=== PATIENT | male | born 1960 | race Caucasian/White ===

== ENCOUNTER 2024-03-10 11:27 | Inpatient (IN) | payer MEDICARE, OTHER ==
[~2024-03-10] VITALS: Ht 172.7 cm; Wt 74.7 kg
[2024-03-10 13:16] LABS: Basophils # (auto) 0.1 10 ^3/uL (0-0.2); Basophils % (auto) 0.6 % (0.0-2.0); Eosinophils # (auto) 0 10 ^3/uL (0-0.8); Eosinophils % (auto) 0.3 % (0.0-7.0); Hematocrit 45.1 % (41.0-53.0); Hemoglobin 15.8 g/dL (13.5-17.5); Lymphocytes % (auto) 18.6 % (10.0-50.0); Mean Corpuscular Hemoglobin 33.9 pg (28.0-32.0); Mean Corpuscular Volume 96.9 fL (80.0-100.0); Monocytes # (auto) 0.7 10 ^3/uL (0-1.3); Monocytes % (auto) 6.3 % (0.0-12.0); Neutrophils # (auto) 8.1 10 ^3/uL (1.6-8.6); Neutrophils % (auto) 74.2 % (37.0-80.0); Nucleated Red Blood Cells % 0.1 %; Platelet Count (auto) 213 10^3/uL (140-450); Red Blood Cells 4.66 10^6/uL (4.5-5.90); Red Cell Distribution Width 12.8 % (11.8-14.3); White Blood Cell 10.9 10^3/uL (4.4-10.8)
[2024-03-10 13:29] LABS: Alanine Aminotransferase 23 U/L (7-40); Albumin 4.9 g/dL (3.2-4.8); Alkaline Phosphatase 90 U/L (46-116); Anion Gap 5 (5-15); Aspartate Aminotransferase 31 U/L (13-40); BUN/Creatinine Ratio 15.8 (10.0-20.0); Blood Alcohol < 3.0 mg/dL (<10); Blood Urea Nitrogen 16 mg/dL (9-23); Calcium 10.7 mg/dL (8.7-10.4); Carbon Dioxide 28 mmol/L (20-30); Chloride 104 mmol/L (98-107); Glucose 114 mg/dL (74-106); Potassium 3.8 mmol/L (3.5-5.1); Sodium 137 mmol/L (136-145)
[2024-03-10 13:30] LABS: Bilirubin, Total 1.6 mg/dL (0.2-1.0); Total Protein 7.1 g/dL (5.7-8.2)
[2024-03-10] MEDS ORDERED: NITROGLYCERIN 0.4 MG SL TAB SL PRN (17:00)
[2024-03-10] MEDS ORDERED: LORazepam 2MG/ML-1ML VIAL IV PRN ×3 (17:00→21:15)
[2024-03-10 18:18] LABS: Blood Alcohol < 3.0 mg/dL (<10)
[2024-03-10 18:19] LABS: Magnesium 2.2 mg/dL (1.6-2.6)
[2024-03-10 18:20] LABS: Phosphorus 3.5 mg/dL (2.4-5.1)
[2024-03-10] MEDS: SODIUM CHLORIDE 0.9% 1,000 ML IV SCH (19:09)
[2024-03-10] MEDS: chlordiazePOXIDE HCL 25 MG CAP PO SCH (19:12)
[2024-03-11] MEDS: ATORVASTATIN 20 MG TAB PO SCH (00:28)
[2024-03-11 06:29] LABS: Triglycerides 58 mg/dL (< 150)
[2024-03-11 06:30] LABS: LDL Cholesterol 58 mg/dL (< 100)
[2024-03-11 06:31] LABS: Cholesterol 138 mg/dL (< 200); HDL Cholesterol 63 mg/dL (40-59)
[2024-03-11 07:30] VITALS: PULSE 60; RESP 18; O2SAT 97
[2024-03-11 09:23] LABS: Urine Bacteria None Seen /hpf (None Seen)
[2024-03-11 09:29] LABS: Urine Blood Negative /uL (Negative); Urine Clarity Clear (Clear); Urine Color Light-Yellow (Yellow); Urine Protein, UAD Negative (Negative); Urine Specific Gravity 1.009 (1.001-1.035); Urine Urobilinogen Normal (Negative); Urine WBC <1 /hpf (0 - 3)
[2024-03-11 09:44] LABS: Amphetamine Screen, Urine Neg (NEGATIVE); Barbiturate Scree,Urine Neg (NEGATIVE); Benzodiazephine Screen, Urine Pos (NEGATIVE); Cannabinoid Screen, Urine Pos (NEGATIVE); Cocaine Screen, Urine Neg (NEGATIVE); Opiate Scree,Urine Neg (NEGATIVE); Phencyclidine Screen, Urine Neg (NEGATIVE)
[2024-03-11] MEDS: LOSARTAN POTASSIUM 25 MG TAB PO SCH (10:00)
[2024-03-11] MEDS: CYANOCOBALAMIN 500 MCG TAB PO SCH (10:08)
[2024-03-11] MEDS: THIAMINE 100mg/ml INJ (200mg/2ml VIAL) IV SCH (10:08)
[2024-03-11] MEDS: ASPirin 81 mg TAB PO SCH (10:08)
[2024-03-11] MEDS: FOLIC ACID 1 MG in D5W 5% 50 ML INJ SCH (12:24)
[2024-03-11 13:30] VITALS: BP 135/73; PULSE 65; RESP 16; TEMP 97.5; O2SAT 98
[2024-03-11 13:52] VITALS: BP 135/73; PULSE 65; RESP 16; TEMP 97.5; O2SAT 98
[2024-03-11 17:00] VITALS: BP 133/79; PULSE 58; RESP 17; TEMP 97.6; O2SAT 100
[2024-03-11 19:35] LABS: COVID19 ANTIGEN SOFIA FIA NEGATIVE (NEGATIVE)
[2024-03-11 20:00] VITALS: PULSE 67; RESP 20; O2SAT 97
[2024-03-11 21:00] VITALS: BP 117/68; PULSE 68; RESP 20; TEMP 97.9; O2SAT 100
[2024-03-11] MEDS: chlordiazePOXIDE HCL 25 MG CAP PO SCH (22:45)
[2024-03-12 01:00] VITALS: BP 105/65; PULSE 67; RESP 20; TEMP 98.2; O2SAT 97
[2024-03-12 05:00] VITALS: BP 124/66; PULSE 64; RESP 18; TEMP 98.5; O2SAT 92
[2024-03-12 09:00] VITALS: BP 113/63; PULSE 77; RESP 17; TEMP 97.6; O2SAT 97
[2024-03-12 17:00] VITALS: BP 117/61; PULSE 74; RESP 18; TEMP 97.7; O2SAT 97
[2024-03-12 20:00] VITALS: PULSE 73; RESP 20; O2SAT 98
[2024-03-12 21:00] VITALS: BP 117/70; PULSE 58; RESP 20; TEMP 98.4; O2SAT 98
[2024-03-12] MEDS: chlordiazePOXIDE HCL 25 MG CAP PO SCH (22:00)
[2024-03-13 01:00] VITALS: BP 117/77; PULSE 64; RESP 20; TEMP 98.2; O2SAT 97
[2024-03-13 05:00] VITALS: BP 127/70; PULSE 74; RESP 20; TEMP 98.3; O2SAT 97
[2024-03-13 08:25] VITALS: PULSE 68; RESP 16; O2SAT 97
[2024-03-13 08:37] VITALS: BP 134/74; PULSE 68; RESP 16; TEMP 98.1; O2SAT 97
[2024-03-13 13:00] VITALS: BP 134/81; PULSE 58; RESP 16; TEMP 97.9; O2SAT 97
[2024-03-13 14:42] VITALS: BP 134/81; PULSE 58; RESP 16; TEMP 97.9; O2SAT 97
[2024-03-14 05:07] LABS: RPR Non Reactive (Non Reactive)
[2024-03-14] MEDS ORDERED: chlordiazePOXIDE HCL 25 MG CAP PO SCH (07:00)
[2024-03-14] MEDS ORDERED: MULT-1018 PO (09:25)
[2024-03-14] MEDS ORDERED: FOLI-119 PO (09:25)
[2024-03-14] MEDS ORDERED: THIA100T13 PO (09:25)
== END 2024-03-13 16:07 | disposition home or self-care (01) | DRG 74 ==
LOC: ER 11:27 → OVERFLOW 17:22 → WEST WING 03-11 13:32
PROVIDERS: ADMIT Nurse Practitioner Family; ATTEND Family Medicine
DX: G90.9 Disorder of the autonomic nervous system, unspecified (principal); F10.239 Alcohol dependence with withdrawal, unspecified; G40.209 Localization-related (focal) (partial) symptomatic epilepsy and epileptic syndromes with complex partial seizures, not intractable, without status epilepticus; D72.829 Elevated white blood cell count, unspecified; G89.29 Other chronic pain; Z20.822 Contact with and (suspected) exposure to COVID-19; M54.9 Dorsalgia, unspecified; Y90.9 Presence of alcohol in blood, level not specified; Z80.0 Family history of malignant neoplasm of digestive organs
CPT/HCPCS: 36415; 70450; 70551; 80053; 80061; 80307; 80320; 81001; 82607; 83735; 84100; 84443; 84484; 85025; 86592; 87426; 93005; 93306; 93886; 95819; 96365; 96375; G0378; J7060

== ENCOUNTER 2025-02-11 13:12 | Inpatient (IN) | payer MEDICARE, OTHER ==
[~2025-02-11] VITALS: Ht 172.7 cm; Wt 79.3 kg
[~2025-02-11 13:12] MED LIST: FOLI-119 PO; MULT-1018 PO; THIA100T13 PO
--- NOTE | 2025-02-11 13:58 | ED.PDOC ---
Altered Mental Status HPI Comments 64 year old male presents to the ED with a chief complaint of confusion onset 2 days. Daughter states patient has been confused for the past 2 days, called daughter this morning, anxious, stating he was bleeding, was unsure why. Patient states he woke up this morning, noticed blood around RT foot and an abrasion on top of RT foot, does not know how he obtained it. Patient visited patient 2 days ago, noticed bruising under both eyes, patient does not recall events. He lives in [place], [place] on his own, daughter brought him with her. Denies PMHx. Patient is a poor historian. No other symptoms or modifying factors present at this time. Time Seen by MD: 13:45 Reviewed Notes: Medications, Allergies Allergies: Coded Allergies: NO KNOWN ALLERGIES (Unverified , 03/10/24) Home Meds Active Scripts Multiple Vitamin (Multivitamins) Tab, 1 TAB PO DAILY, #30 TAB 5 Refills Prov:KRISTYN PAREDES MD 03/14/24 Folic Acid (Folic Acid) 1 Mg Tab, 1 MG PO DAILY, #30 TAB Prov:KRISTYN PAREDES MD 03/14/24 Thiamine HCl (Thiamine Hydrochloride) 100 Mg Tab, 100 MG PO DAILY, #30 TAB Prov:KRISTYN PAREDES MD 03/14/24 Information Source: Patient, Relative (Child) Mode of Arrival: Ambulatory Severity: Moderate Timing: Days Duration: Since onset Prehospital treatment: None Quality: Change in Behavior, Confusion Recent: None Past Medical History PAST MEDICAL HISTORY: Denies Surgical History: Denies all surgeries Family History Family History: Reviewed,noncontributory to illness Social History Smoker: Non-Smoker Alcohol: Denies ETOH Use Drugs: Denies Drug Use Lives In: Home Constitutional: denies: chills, diaphoresis, fatigue, fever, malaise, sweats, weakness, others EENTM: denies: blurred vision, double vision, ear bleeding, ear discharge, ear drainage, ear pain, ear ringing, eye pain, eye redness, hearing loss, mouth otoniel n, mouth swelling, nasal discharge, nose bleeding, nose congestion, nose pain, photophobia, tearing, throat pain, throat swelling, voice changes, others Respiratory: denies: cough, hemoptysis, orthopnea, SOB at rest, shortness of breath, SOB with excertion, stridor, wheezing, others Cardiovascular: denies: chest pain, dizzy spells, diaphoresis, Dyspnea on exertion, edema, irregular heart beat, left arm pain, lightheadedness, palpitations, PND, syncope, others Gastrointestinal: denies: abdomen distended, abdominal pain, blood streaked bowels, constipated, diarrhea, dysphagia, difficulty swallowing, hematemesis, melena, nausea, poor appetite, poor fluid intake, rectal bleeding, rectal pain, vomiting, others Genitourinary: denies: burning, dysuria, flank pain, frequency, hematuria, incontinence, penile discharge, penile sore, pain, testicle pain, testicle swelling, urgency, others Neurological: reports: others (confused); denies: dizziness, fainting, headache, left sided numbness, left sided weakness, numbness, paresthesia, pre- existing deficit, right sided numbness, right sided weakness, seizure, speech problems, tingling, tremors, weakness Musculoskeletal: denies: back pain, gout, joint pain, joint swelling, muscle pain, muscle stiffness, neck pain, others Integumetry: reports: wounds (RT foot), others (bilateral eyes with bruising); denies: bruises, change in color, change in hair/nails, dryness, laceration, lesions, lumps, rash Allergic/Immunocompromised: denies: Difficulty Healing, Frequent Infections, Hives, Itching, others Hematologic/Lymphatic: denies: anemia, blood clots, easy bleeding, easy bruising, swollen glands, others Endocrine: denies: excessive hunger, excessive sweating, excessive thirst, excessive urination, flushing, intolerance to cold, intolerance to heat, unexplained weight gain, unexplained weight loss, others Psychiatric: reports: anxiety; denies: bipolar disorder, depression, hopeless, panic disorder, schizophrenia, sleepless, suicidal, others All Other Systems: Reviewed and Negative Physical Exam General Appearance: Moderate Distress HEENT: Normal ENT Inspection, Pharynx Normal, TMs Normal Neck: Full Range of Motion, Non-Tender, Normal, Normal Inspection Respiratory: Chest Non-Tender, Lungs Clear, No Accessory Muscle Use, No Respiratory Distress, Normal Breath Sounds Cardiovascular: No Edema, No JVD, No Murmur, No Gallop, Normal Peripheral Pulses, Regular Rate/Rhythm Breast Exam: Deferred Gastrointestinal: No Organomegaly, Non Tender, No Pulsatile Mass, Normal Bowel Sounds, Soft Genitalia: Deferred Pelvic: Deferred Rectal: Deferred Extremities: No calf tenderness, Normal capillary refill, Normal inspection, Normal range of motion, Non-tender, No pedal edema Musculoskeletal : Apperance: Normal Neurologic: Disoriented Cerebellar Function: Normal Reflexes: Normal Skin: Bruises (Left side of face ), Dry, Normal Color, Warm Peripheral Pulses: 3+ Radial (R), 3+ Radial (L) Lymphatic: No Adenopathy Was a procedure done? Was a procedure done?: No Differential Diagnosis (ALOC) Differential Diagnosis: Dehydration, Hypoglycemia, Closed Head Injury X-Ray, Labs, Meds, VS Vital Signs Date Time Temp Pulse Resp B/P (MAP) Pulse Ox O2 Delivery O2 Flow Rate FiO2 02/11/25 15:19 16 156/83 (107) 96 02/11/25 14:09 99.6 74 20 143/76 (98) 97 99.6 Lab Test 02/11/25 14:12 Range/Units White Blood Count 13.3 H 4.4-10.8 10^3/uL Red Blood Count 4.47 L 4.5-5.90 10^6/uL Hemoglobin 15.2 13.5-17.5 g/dL Hematocrit 43.9 41.0-53.0 % Mean Corpuscular Volume 98.1 80.0-100.0 fL Mean Corpuscular Hemoglobin 34.0 H 28.0-32.0 pg Mean Corpuscular Hemoglobin Concent 34.6 32.0-36.0 g/dL Red Cell Distribution Width 13.4 11.8-14.3 % Platelet Count 249 140-450 10^3/uL Mean Platelet Volume 7.1 6.9-10.8 fL Neutrophils (%) (Auto) 79.4 37.0-80.0 % Lymphocytes (%) (Auto) 13.1 10.0-50.0 % Monocytes (%) (Auto) 6.8 0.0-12.0 % Eosinophils (%) (Auto) 0.2 0.0-7.0 % Basophils (%) (Auto) 0.5 0.0-2.0 % Neutrophils # (Auto) 10.6 H 1.6-8.6 10 ^3/uL Lymphocytes # (Auto) 1.7 0.4-5.4 10 ^3/uL Monocytes # (Auto) 0.9 0-1.3 10 ^3/uL Eosinophils # (Auto) 0 0-0.8 10 ^3/uL Basophils # (Auto) 0.1 0-0.2 10 ^3/uL Nucleated Red Blood Cells 0.1 % Sodium Level 138 136-145 mmol/L Potassium Level 3.9 3.5-5.1 mmol/L Chloride Level 103 98-107 mmol/L Carbon Dioxide Level 27 20-31 mmol/L Anion Gap 8 5-15 Blood Urea Nitrogen 11 9-23 mg/dL Creatinine 0.90 0.700-1.30 mg/dL Glomerular Filtration Rate Calc 94 >90 mL/min BUN/Creatinine Ratio 12.2 10.0-20.0 Serum Glucose 124 H 74-106 mg/dL Calcium Level 10.3 8.7-10.4 mg/dL Troponin I High Sensitivity 455 *H </=54 ng/L Current Medications Medications (Trade) Dose Ordered Sig/Joslyn Route Start Time Stop Time Status Last Admin Sodium Chloride 1,000 ml @ 1,000 mls/hr Q1H ONCE IV 02/11/25 13:45 02/11/25 14:44 DC 02/11/25 15:34 Patient alert. Status post fall. Can not give a good history. Vitals stable. Establish intravenous access. Was given fluids. Cardiac marker elevated. WBC elevated. Blood pressure elevated. He does not take care himself. Possible dementia. EKG reviewed does not show any acute changes. Explained to the family. Continue monitoring. Time of 1ST Reevaluation: 14:15 Reevaluation 1ST: Unchanged Patient Education/Counseling: Diagnosis, Treatment, Prognosis Family Education/Counseling: Diagnosis, Treatment, Prognosis SEPSIS Sepsis Screen Physician Orders Head Without Contrast (02/11/25 13:42) Chest Portable (02/11/25 13:42) Urinalysis (02/11/25 13:42) Maxillofacial Without (02/11/25 13:42) Vital Signs Date Time Temp Pulse Resp B/P (MAP) Pulse Ox O2 Delivery O2 Flow Rate FiO2 02/11/25 15:19 16 156/83 (107) 96 02/11/25 14:09 99.6 74 20 143/76 (98) 97 99.6 Laboratory Tests Test 02/11/25 14:12 White Blood Count 13.3 10^3/uL (4.4-10.8) H Medications Medications Dose Ordered Sig/Joslyn Route Start Time Stop Time Status Last Admin Dose Admin Sodium Chloride 1,000 ml @ 1,000 mls/hr Q1H ONCE IV 02/11/25 13:45 02/11/25 14:44 DC 02/11/25 15:34 Departure 1 Departure Time of Disposition: 15:39 Impression: Primary Impression: Metabolic encephalopathy Additional Impressions: Elevated troponin Head injury Qualified Codes: S09.90XA - Unspecified injury of head, initial encounter Disposition: ADMITTED INPATIENT Admit to: Med Surg Condition: Guarded Critical Care Note Critical Care Time?: Yes (90 min-critical care time only) Stability Stability form required: No Heart Score Heart Score: Heart Score Response (Comments) Value History Slightly Suspicious 0 EKG Normal 0 Age >65 2 Risk Factors >3 or Hx ASHD 2 Troponin >3 x's Normal limit 2 Total 6 I personally scribed for LOUANN RODRIGUEZ MD ([email or web address]) on 02/11/25 at 13:58. Electronically submitted by Ade Bhakta ([email or web address]). LOUANN RODRIGUEZ MD Feb 11, 2025 13:58
[2025-02-11 14:26] LABS: Hematocrit 43.9 % (41.0-53.0); Hemoglobin 15.2 g/dL (13.5-17.5); Mean Corpuscular Hemoglobin 34.0 pg (28.0-32.0); Mean Corpuscular Volume 98.1 fL (80.0-100.0); Nucleated Red Blood Cells % 0.1 %
--- NOTE | 2025-02-11 14:27 | DVH ---
CHEST RADIOGRAPH Indication: sob Technique: Single frontal view of the chest was obtained COMPARISON: None FINDINGS: Lines and Tubes: None Lungs: Clear Pleura: No effusion. No pneumothorax. Cardiomediastinal contours: Unremarkable Bones: No acute osseous abnormalities. Old left-sided rib fractures. Mild degenerative changes at the acromioclavicular joints. Mild thoracic dextrocurvature. IMPRESSION: No evidence of acute cardiopulmonary disease.
--- NOTE | 2025-02-11 14:27 | DVH ---
CT HEAD WITHOUT CONTRAST INDICATION: fall EXAM DATE: 02/11/2025 01:51 PM COMPARISON: CT HEAD WITHOUT CONTRAST on DOS: 03/10/24 RADIATION DOSE: CTDIvol: 52.13 mGy, DLP: 835.78 mGy*cm PROCEDURE: CT scans of the head were obtained from the vertex to the skull base. Sagittal and coronal reconstructions were provided. All CT scans at this medical facility are performed using dose modulation techniques as appropriate t o a performed exam including the following: Automated exposure control was utilized; adjustment of th e MA and/or KV according to patient size; and use of iterative reconstruction technique. FINDINGS: There is sulcal and ventricular prominence. The brainshows normal morphology and cortes-whi te matter differentiation, without intracranial hemorrhage, extra-axial fluid collection, mass effect or acute large vessel infarct. The ventricles are normal in size. The basal cisterns are patent. The skull and visible facial bones are intact. The paranasal sinuses, mastoid air cells and middle ear c avities are well-aerated. The soft tissues of the scalp are unremarkable. IMPRESSION: No acute intracranial abnormality.
--- NOTE | 2025-02-11 14:30 | DVH ---
CT MAXILLOFACIAL WITHOUT INDICATION: fall EXAM DATE: 02/11/2025 01:49 PM COMPARISON: None RADIATION DOSE: CTDIvol: 66.71 mGy, DLP: 1257.77 mGy*cm PROCEDURE: Using the CT scanner, contiguous noncontrast scans were obtained from above the orbital ri ms to below the mandible. Coronal and sagittal reformatted images were then generated. All CT scans at this medical facility are performed using dose modulation techniques as appropriate t o a performed exam including the following: Automated exposure control was utilized; adjustment of th e MA and/or KV according to patient size; and use of iterative reconstruction technique. FINDINGS: The facial bones, including the orbits and paranasal sinuses are intact without evidence of fracture. The paranasal sinuses, mastoid air cells and middle ear cavities are normally aerated. The orbital contents are normal. The soft tissues of the face are unremarkable. IMPRESSION: No acute fracture CT findings of the maxillofacial region.
[2025-02-11 14:34] LABS: Chloride 103 mmol/L (98-107); Potassium 3.9 mmol/L (3.5-5.1); Sodium 138 mmol/L (136-145)
[2025-02-11 14:35] LABS: Anion Gap 8 (5-15); Carbon Dioxide 27 mmol/L (20-31)
[2025-02-11 14:36] LABS: Calcium 10.3 mg/dL (8.7-10.4)
[2025-02-11 14:41] LABS: BUN/Creatinine Ratio 12.2 (10.0-20.0); Blood Urea Nitrogen 11 mg/dL (9-23)
[2025-02-11 14:44] LABS: Glucose 124 mg/dL (74-106)
[2025-02-11] MEDS: SODIUM CHLORIDE 0.9% 1,000 ML IV ONE (15:34)
[2025-02-11 16:54] LABS: Urine Protein, UAD Negative (Negative)
[2025-02-11] MEDS ORDERED: ACETAMINOPHEN 325 MG TAB PO PRN (22:30)
--- NOTE | 2025-02-11 22:30 | DVHHP2 ---
History of Present Illness History of Present Illness Patient is 64 years old male with no significant past medical history came with the complaint of confusion. Patient was accompanied by his daughter. As per patient and daughter patient has been confused for last 3-4 days. Four days before patient woke up and felt confused, saw blood in his right foot and some cut injury on the right foot and black eye on the left. Patient then went to the restroom where he saw blood in the restroom but could not recall how this all happened. Patient not sure if he had any blackout or syncopal episode or not. Patient denied chest pain or shortness of breaths, dysuria, diarrhea, any joint pain or swelling. Patient was admitted at [facility] in February 2024 with dizziness and confusion, during that hospital stay CT head /MRI brain/carotid Doppler was negative. EEG was within normal limit, echo 2D LVEF was 60%. On this current admission Initial lab workup revealed leukoc ytosis with WBC 13.3, elevated troponin I 455, urinalysis glucose 1+. EKG sinus rhythm with short OH interval. Chest x-ray no acute cardiopulmonary abnormality, CT head no acute intracranial abnormality, CT maxillofacial no acute fracture. Carotid Doppler revealed-Atherosclerotic vascular disease with no hemodynamically significant stenosis. Any narrowing is less than 50%. Past Medical History No significant past medical history Past Surgical History Back surgery Past Social History Alcoholic, smokes marijuana, lives alone Review of Systems Review of Systems Allergy- NKDA Patient was seen today at the bedside. Cardiovascular- deny acute chest pain or shortness of breath or cough or palpitation Respiratory denies cough or short of breath or wheezing Gastrointestinal- denies any rectal bleeding, nausea or vomiting Musculoskeletal-denies acute joint swelling or tenderness or redness Neurological- denies acute dysarthria, dysphagia, change in vision Psychiatry- denies depression or SI or HI Skin- denies acute rash or purpura Allergies: Coded Allergies: NO KNOWN ALLERGIES (Unverified , 03/10/24) Medications Current Medications Medications Dose Ordered Sig/Joslyn Route Start Time Stop Time Status Last Admin Dose Admin Sodium Chloride 10 ml Q8HR IV 02/12/25 06:00 UNV Acetaminophen 650 mg Q6HP PRN PO 02/11/25 22:30 UNV Exam Vital Signs Vital Signs Date Time Temp Pulse Resp B/P (MAP) Pulse Ox O2 Delivery O2 Flow Rate FiO2 02/11/25 21:55 98.9 75 16 149/70 (96) 97 98.9 Exam General examination- not in acute distress HEENT- PEERLA,-left black eye Cardiovascular- S1-S2 audible, rate and rhythm regular, no murmur Respiratory- CTAB, no wheeze or rhonchi Gastrointestinal-nontender, bowel sound+. Nondistended Musculoskeletal-no acute joint swelling or tenderness or redness Lower extremity- no leg edema, injury on the right foot Neurological- cranial nerves intact, no acute dysarthria or dysphagia Psychiatry- denies depression or SI or HI Skin- no acute rash or purpura Labs/Xrays Labs Test 02/11/25 16:47 02/11/25 15:28 02/11/25 14:12 Range/Units Urine Color Light-yellow Yellow Urine Clarity Clear Clear Urine pH 5.0 5.0-9.0 Urine Specific Astor 1.008 1.001-1.035 Urine Protein Negative Negative Urine Ketones Negative Negative Urine Blood Negative Negative /uL Urine Nitrite Negative Negative Urine Bilirubin Negative Negative Urine Urobilinogen Normal Negative mg/dL Urine Leukocyte Esterase Negative Negative /uL Urine RBC 1 0 - 3 /hpf Urine Microscopic WBC 1 0-3 /HPF Urine Squamous Epithelial Cells None seen <5 /hpf Urine Bacteria None seen None Seen /hpf Urine Glucose 1+ H Normal mg/dL POC Glucose 121 H 70-106 mg/dl White Blood Count 13.3 H 4.4-10.8 10^3/uL Red Blood Count 4.47 L 4.5-5.90 10^6/uL Hemoglobin 15.2 13.5-17.5 g/dL Hematocrit 43.9 41.0-53.0 % Mean Corpuscular Volume 98.1 80.0-100.0 fL Mean Corpuscular Hemoglobin 34.0 H 28.0-32.0 pg Mean Corpuscular Hemoglobin Concent 34.6 32.0-36.0 g/dL Red Cell Distribution Width 13.4 11.8-14.3 % Platelet Count 249 140-450 10^3/uL Mean Platelet Volume 7.1 6.9-10.8 fL Neutrophils (%) (Auto) 79.4 37.0-80.0 % Lymphocytes (%) (Auto) 13.1 10.0-50.0 % Monocytes (%) (Auto) 6.8 0.0-12.0 % Eosinophils (%) (Auto) 0.2 0.0-7.0 % Basophils (%) (Auto) 0.5 0.0-2.0 % Neutrophils # (Auto) 10.6 H 1.6-8.6 10 ^3/uL Lymphocytes # (Auto) 1.7 0.4-5.4 10 ^3/uL Monocytes # (Auto) 0.9 0-1.3 10 ^3/uL Eosinophils # (Auto) 0 0-0.8 10 ^3/uL Basophils # (Auto) 0.1 0-0.2 10 ^3/uL Nucleated Red Blood Cells 0.1 % Sodium Level 138 136-145 mmol/L Potassium Level 3.9 3.5-5.1 mmol/L Chloride Level 103 98-107 mmol/L Carbon Dioxide Level 27 20-31 mmol/L Anion Gap 8 5-15 Blood Urea Nitrogen 11 9-23 mg/dL Creatinine 0.90 0.700-1.30 mg/dL Glomerular Filtration Rate Calc 94 >90 mL/min BUN/Creatinine Ratio 12.2 10.0-20.0 Serum Glucose 124 H 74-106 mg/dL Calcium Level 10.3 8.7-10.4 mg/dL Troponin I High Sensitivity 455 *H </=54 ng/L SEPSIS Sepsis Screen Date sepsis recognized/suspect: Feb 11, 2025 Time Sepsis recognized/suspect: 1310 Recent Procedure: No On Antibiotic Therapy: No Respiratory Rate >20: No Heart Rate >90: No Temp<36 C (96.8 F) or >38.3 C: No SBP <90 or MAP <65 mmHG: No New Acute Mental Status Change: No Is the patient on CPAP, BIPAP,: No Physician Orders Electrocardigram (02/11/25 15:44) Admit (02/11/25 22:27) Code Status (02/11/25 22:27) Sodium Chloride Lock (Saline Lock Ns) (02/12/25 06:00) Complete Blood Count (02/12/25 04:00) Comprehensive Metabolic Panel (02/12/25 04:00) Echo 2d Mode Cardiac Dop (02/11/25 22:27) Carotid Duplx W Color Dop (02/11/25 22:27) Acetaminophen Tablet (Tylenol Tablet) (02/11/25 22:30) Stat Ekg For Chest Pain (02/11/25 22:27) Notify Md Of Changes From Base (02/11/25 22:27) Well Driller Helper For 24 Hours (02/11/25 22:27) Vital Signs Date Time Temp Pulse Resp B/P (MAP) Pulse Ox O2 Delivery O2 Flow Rate FiO2 02/11/25 21:55 98.9 75 16 149/70 (96) 97 98.9 02/11/25 15:19 16 156/83 (107) 96 Laboratory Tests Test 02/11/25 14:12 White Blood Count 13.3 10^3/uL (4.4-10.8) H Medications Medications Dose Ordered Sig/Joslyn Route Start Time Stop Time Status Last Admin Dose Admin Sodium Chloride 1,000 ml @ 1,000 mls/hr Q1H ONCE IV 02/11/25 13:45 02/11/25 14:44 DC 02/11/25 15:34 1,000 MLS/HR Assessment/Plan Assessment/Plan Assessment and plan # acute metabolic/toxic encephalopathy under evaluation # 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 Syncope #? Dementia # ?seizure -CT head negative for acute intracranial abnormality -carotid Doppler -no significant stenosis -CT maxillofacial- no acute fracture -EKG short OH interval with sinus rhythm -troponin I-455> 293>236 -ammonia 19 -plasma alcohol<3 -pending echo 2D -continue current conservative management -pending neurology consult -pending MRI of the brain # non STEMI likely type 2 likely demand lead ischemia -troponin I-455> 293 -continue current conservative management # leukocytosis under evaluation -chest x-ray no acute cardiopulmonary abnormality -urinalysis negative for UTI -pending urine culture - UDS positive for cannabinoids # transaminitis -serum bilirubin total 1.1, AST 69, ALT 55, alkaline phosphatase 63 -ammonia 19 -pending ultrasound of the liver # history of alcoholism -patient was counseled about the effect of alcoholism on health # substance abuse, cannabinoids -UDS positive for cannabinoids -patient was counseled about the effect of substance abuse on health Diet-regular diet Goals of care, Code status full code ; discussed with >15 minutes PUD prophylaxis: Pantoprazole DVT prophylaxis: Lovenox Plan discussed with Dr. Mcgrath , nursing staff, Total time spent on patient evaluation, chart review, assessment and plan, discussion discussion >35 minutes Plan discussed with: Patient, Daughter, Other (RN) My Orders Orders - COLEEN WERNER Procedure Category Date Status Time Admit ADMIT 02/11/25 Transmitted 22:27 Code Status CODE 02/11/25 Transmitted 22:27 Sodium Chloride Lock PHA 02/12/25 Logged (Saline Lock Ns) 06:00 Complete Blood Count LAB 02/12/25 Verified 04:00 Comprehensive LAB 02/12/25 Verified Metabolic Panel 04:00 Echo 2d Mode Cardiac US 02/11/25 Logged DOP 22:27 Carotid Duplx W Color US 02/11/25 Logged DOP 22:27 Acetaminophen Tablet PHA 02/11/25 Logged (Tylenol Tablet) 22:30 Stat Ekg For Chest MARYCRUZ 02/11/25 In Process Pain 22:27 Notify Of Changes MARYCRUZ 02/11/25 In Process From Base 22:27 Well Driller Helper For MARYCRUZ 02/11/25 In Process 24 Hours 22:27 Date of Service: Feb 11, 2025 Billing Provider: NATHAN MCGRATH MD Common Visit Codes: 73865-[id number] INP/OBS CARE (HIGH) Secondary Visit Codes: 86826-NUBPFJRV CARE PLAN 30 MINUTES COLEEN WERNER Feb 11, 2025 22:30
[2025-02-11] MEDS: CYANOCOBALAMIN (B-12) 1000 MCG/1 ML VIAL IM ONE (23:16)
[2025-02-11] MEDS: PANTOPRAZOLE 40 MG TAB PO ONE (23:17)
--- NOTE | 2025-02-11 23:51 | ECG ---
[facility] Test Date: 2025-02-11 Test Time: 23:50:44 Pat Name: POLLO WALLS Department: ED Room: [address] [place] [address] Gender: M Card Maker: jono : [id number] Requested By: LOUANN RODRIGUEZ Order Number: [id number] Reading MD: Eloy Arteaga Measurements Intervals [place] Rate: 73 P: 73 KS: 116 QRS: 78 QRSD: 92 T: 46 QT: 409 QTc: 451 Interpretive Statements Sinus rhythm Borderline short [place] interval RSR' in V1 or V2, probably normal variant Electronically Signed On 02-14-2025 15:55:20 PDT by Eloy Arteaga Please click the below link to view image of tracing.
--- NOTE | 2025-02-12 00:34 | DVH ---
ULTRASOUND CAROTID DUPLEX BILATERAL REASON FOR EXAM: SUSPECTED SYNCOPE. Hypertension. Hyperlipidemia. COMPARISON: US CAROTID DUPLX W COLOR DOP on DOS: 03/11/24 TECHNIQUE: Using real-time freeze-frame technique with the 6 MHz small parts transducer, multiple lo ngitudinal and transverse sections were obtained. Simultaneous color flow Doppler imaging was perfor med. FINDINGS: Calcified and noncalcified plaques are present in both carotid bulbs and internal carotid arteries. Waveforms are normal. Flow is laminar throughout. Peak systolic velocities as well as ICA/ CCA ratios are normal. Flow through the vertebral and external carotid arteries is antegrade bilater ally. PEAK SYSTOLIC VELOCITIES (cm/sec): RIGHT: CCA 77 Proximal ICA 61 Mid ICA 97 Distal ICA 92 ECA 56 ICA/CCA ratio 1.3 LEFT: CCA 95 Proximal ICA 66 Mid ICA 73 Distal ICA 82 ECA 74 ICA/CCA ratio 0.9 IMPRESSION: Atherosclerotic vascular disease with no hemodynamically significant stenosis. Any narrowing is less than 50%. Measurement of carotid stenosis is based on velocity parameters that correlate the residual internal carotid diameter with that of the more distal vessel in accordance with the [place] Symptomati c Carotid Endarterectomy Trial (NASCET).
[2025-02-12] MEDS: LORazepam 2MG/ML-1ML VIAL IV ONE (01:18)
[2025-02-12 01:33] LABS: Albumin 4.2 g/dL (3.2-4.8); Alkaline Phosphatase 70 U/L (46-116); Magnesium 1.9 mg/dL (1.6-2.6); Total Protein 6.2 g/dL (5.7-8.2)
[2025-02-12 01:34] LABS: Bilirubin, Total 1.0 mg/dL (0.2-1.0)
[2025-02-12 01:49] LABS: Alanine Aminotransferase 61 U/L (7-40); Bilirubin, Direct 0.4 mg/dL (<0.3)
[2025-02-12] MEDS: SODIUM CHLORIDE 0.9% 1,000 ML IV ONE (03:45)
[2025-02-12 03:58] LABS: Amphetamine Screen, Urine Neg (NEGATIVE); Barbiturate Scree,Urine Neg (NEGATIVE); Benzodiazephine Screen, Urine Neg (NEGATIVE); Cocaine Screen, Urine Neg (NEGATIVE); Opiate Scree,Urine Neg (NEGATIVE); Phencyclidine Screen, Urine Neg (NEGATIVE)
[2025-02-12 03:59] LABS: Cannabinoid Screen, Urine Pos (NEGATIVE)
[2025-02-12 04:10] LABS: COVID19 ANTIGEN SOFIA FIA NEGATIVE (NEGATIVE)
[2025-02-12 05:20] LABS: Albumin 3.7 g/dL (3.2-4.8); Alkaline Phosphatase 63 U/L (46-116); Anion Gap 9 (5-15); BUN/Creatinine Ratio 11.4 (10.0-20.0); Bilirubin, Total 1.1 mg/dL (0.2-1.0); Carbon Dioxide 25 mmol/L (20-31); Chloride 106 mmol/L (98-107); Potassium 3.6 mmol/L (3.5-5.1); Sodium 140 mmol/L (136-145)
[2025-02-12 05:21] LABS: Alanine Aminotransferase 55 U/L (7-40); Blood Urea Nitrogen 8 mg/dL (9-23); Calcium 8.7 mg/dL (8.7-10.4); Glucose 108 mg/dL (74-106); Total Protein 5.6 g/dL (5.7-8.2)
[2025-02-12] MEDS: THIAMINE HCL 100 MG TAB PO ONE (06:42)
[2025-02-12] MEDS: ATORVASTATIN 20 MG TAB PO ONE (06:43)
[2025-02-12] MEDS: SODIUM CHLOR 0.9% PF (SALINE LOCK) 10ML VIAL/SYR IV SCH (06:44)
[2025-02-12] MEDS: ENOXAPARIN SOD 40 MG/0.4 ML SYRINGE SC ONE (06:44)
[2025-02-12 08:00] VITALS: PULSE 66; RESP 12; O2SAT 95
--- NOTE | 2025-02-12 08:08 | DVH ---
INDICATION: pain rule out cirrhosis of liver or liver mass TECHNIQUE: Multiple real-time sonographic images were obtained of the right upper quadrant. COMPARISON: None FINDINGS: The liver demonstrates homogenous echotexture without focal mass lesions. The liver measure s 15 cm. There is no intrahepatic or extrahepatic ductal dilatation. The common duct measures 4 mm. The gallbladder is without evidence of stone or sludge. The gallbladder wall measures 2 mm and is wi thin normal limits. The right kidney measures 10.6 cm. The right kidney is normal in contour, size, and shape. The echog enicity is normal. There is no hydronephrosis. The pancreas is not well visualized due to overlying bowel gas. IMPRESSION: No sonographic evidence of gallstones or acute cholecystitis.
[2025-02-12 09:04] LABS: Nucleated Red Blood Cells % 0.1 %
[2025-02-12 09:05] LABS: Hematocrit 40.5 % (41.0-53.0); Hemoglobin 14.1 g/dL (13.5-17.5); Mean Corpuscular Hemoglobin 34.0 pg (28.0-32.0); Mean Corpuscular Volume 97.8 fL (80.0-100.0)
--- NOTE | 2025-02-12 09:15 | DVHINCON2 ---
Date of service: Feb 12, [address] 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 Bautista is a 64 years old right-handed gentleman without major medical problem, he came to the hospital on 02/11/2025 with a chief complaint of confusion for two days, at this time, he is alert and orientedx3, he is able to maintain a good conversation. The history is obtained from him and his daughter who is in the ER with him. I saw him on 03/10/2024 for dizziness, confusion The patient has been confused on waking up on 02/09/2024, but he has islands of memory. He remembers waking up confused, with a superficial laceration in the right foot, and left periorbital bruise, he called his daughter, who confirmed the patient was mentally altered/confused when she came over. The patient has been confused but also had alcohol on 02/09/2024, 02/10/2024, daughter suspect but could not confirm if he had alcohol on 02/11/2024 In the beginning of 2023, he became confused with abnormal behavior for 2-3 hours when he was in his grandson school Around 08/2023, when he was doing, when the patient was doing dishes at his [facility]'s home, he became confused, leaning to the sink, he did not know where he was, and he reported complete amnesia about this event. EMS came over, but he was not taken to a hospital/emergency room Around 11/2023, according to his grandson, he repeated himself (constantly report dated 03/10/2024) On 03/08/2024, twice he did not recognize familiar objects, not remember what he was said, the event were about about 5 minutes He was no history of seizure, traumatic brain injury, intracranial infection, [facility] Urinalysis, 02/12/2025: Unremarkable UDS, 02/12/2025: Cannabinoids Plasma alcohol, 03/10/2024: Normal, 02/12/2025: <3 WBC/HB/PLT/MCV, 02/11/2025: 13.3/15.2/249/98.1 BMP, 02/12/2025: Unremarkable TBI/AST/ALT/AP, 03/10/2024: 1.02/12/2025: 1.1/69/55/63 NH3, 02/13/2020 5:19 a.m. Vitamin B12, 03/10/2024: 308 TSH, 03/10/2024: 3.48 EEG, 03/12/24: Normal Ultrasound, 02/12/2025: No sonographic evidence of gallstones or acute cholecystitis. Carotid Doppler, 02/11/2025: Atherosclerotic vascular disease with no hemodynamically significant stenosis. Any narrowing is less than 50%. CT head, 02/29/2024: No acute intracranial abnormality CT head, 02/11/2025: No acute intracranial abnormality. MRI head, 03/12/2024: 1. No evidence of acute infarction, intracranial hemorrhage, mass lesion or hydrocephalus. 2. No seizure focus identified. 3. If there is further localizing history, we would be happy to review these image Past Medical History No major medical problems Past Surgical History Pelvis and sacral fracture repair Family History: FHx: stomach cancer G8 MOTHER Family History Stomach cancer Social History He is not a tobacco smoker, but he uses marijuana, he has along history of heavy alcohol, but no recreational drug abuse. He lives alone, Allergies: Coded Allergies: NO KNOWN ALLERGIES (Unverified , 03/10/24) Home Meds Active Scripts Multiple Vitamin (Multivitamins) Tab, 1 TAB PO DAILY, #30 TAB 5 Refills Prov:KRISTYN PAREDES MD 03/14/24 Folic Acid (Folic Acid) 1 Mg Tab, 1 MG PO DAILY, #30 TAB Prov:KRISTYN PAREDES MD 03/14/24 Thiamine HCl (Thiamine Hydrochloride) 100 Mg Tab, 100 MG PO DAILY, #30 TAB Prov:KRISTYN PAREDES MD 03/14/24 Current Medications Current Medications Medications (Trade) Dose Ordered Sig/Joslyn Route PRN Reason Start Time Stop Time Status Last Admin Sodium Chloride (Saline Lock Ns) 10 ml Q8HR IV 02/12/25 06:00 02/12/25 06:44 Acetaminophen (Tylenol Tablet) 650 mg Q6HP PRN PO PAIN SCALE 1-3 OR TEMP>100.4 02/11/25 22:30 Folic Acid 1 mg/ Dextrose 50.2 ml @ 200.8 mls/ hr DAILY INJ 02/12/25 10:00 02/12/25 03:26 DC Folic Acid 1 mg DAILY PO 02/12/25 10:00 Folic Acid 1 mg/ Magnesium Sulfate 8 meq/ Multivitamins 10 ml/Thiamine HCl 100 mg/Sodium Chloride 1,013.2 ml @ 126.247 mls/hr DAILY@1800 INJ 02/12/25 18:00 Pantoprazole Sodium (Protonix Tablet) 40 mg DAILY@0600 PO 02/13/25 06:00 Enoxaparin Sodium (Lovenox) 40 mg DAILY SC 02/13/25 10:00 Aspirin 81 mg DAILY PO 02/13/25 10:00 Atorvastatin Calcium (Lipitor) 40 mg HS PO 02/12/25 22:00 Thiamine HCl 100 mg DAILY PO 02/13/25 10:00 Ergocalciferol (Vitamin D 50,000 Unit) 50,000 unit Q7D PO 02/12/25 08:45 UNV Review of Systems As above, the other systems are negative Vital Signs Vital Signs Date Time Temp Pulse Resp B/P (MAP) Pulse Ox O2 Delivery O2 Flow Rate FiO2 02/12/25 08:00 98.6 66 12 143/63 (89) 95 98.6 02/12/25 08:00 Room Air* 0 21 Physical Exam GENERAL EXAM: General: the patient is well developed and nourished. No acute distress. HEENT: Normocephalic except for resolving left periorbital bruise, neck is supple, no carotid bruits. No mass. RESPIRATORY: Normal respiratory effort with symmetrical lung expansion. Lungs clear to auscultation. CARDIOVASCULAR: Regular rate and rhythm with no murmurs. S1, S2. ABDOMEN: Soft, nontender, normal bowel sound Resolving superficial laceration in the right foot NEUROLOGICAL: MENTAL STATUS: Awake and alert. Oriented to person, place, time and general circumstances. Able to give personal history. SPEECH, LANGUAGE, HIGHER CORTICAL FUNCTION: no aphasia or dysathria. CRANIAL NERVES: #2: Intact visual guerrero to confrontation. The optic discs were sharp. Retinal background was uniformly pink in appearance. There was no hemorrhages or exudates. #3,4,6: Pupils are equal, round and reactive. EOMs full and conjugate. Mild bilateral gaze evoked nystagmus. #5: Facial sensation intact in all three divisions bilaterally. Mandibular strength intact. #7: Facial muscles symmetrical and strength intact. #8: Hearing grossly normal to voice. #9,10: Uvula and soft palate rise in the midline. Swallow and voice are normal. #11: Trapezius and sternomastoid strength intact bilaterally. #12: Tongue midline. No fasciculations or atrophy. SENSATION: Sensation to touch and pinprick is normal. MOTOR: Normal tone in the upper and lower extremity. Normal muscle bulk. No fasciculations. No abnormal movements or posturing. Muscle strength of the major groups in the upper extremities is 5/5. Muscle strength of the major groups in the lower extremities is 5/5. REFLEXES: Deep tendon reflexes normal and symmetrical. No pathological reflexes. CEREBELLAR/COORDINATION: Finger to nose and heel to cannon are normal bilaterally. GAIT/STATION: deferred. Labs/Diagnostic Data Labs Test 02/12/25 08:44 02/12/25 06:53 02/12/25 04:40 02/12/25 02:40 Range/Units Sodium Level 140 136-145 mmol/L Potassium Level 3.6 3.5-5.1 mmol/L Chloride Level 106 98-107 mmol/L Carbon Dioxide Level 25 20-31 mmol/L Anion Gap 9 5-15 Blood Urea Nitrogen 8 L 9-23 mg/dL Creatinine 0.70 0.700-1.30 mg/dL Glomerular Filtration Rate Calc 102 >90 mL/min BUN/Creatinine Ratio 11.4 10.0-20.0 Serum Glucose 108 H 74-106 mg/dL Calcium Level 8.7 8.7-10.4 mg/dL Total Bilirubin 1.1 H 0.2-1.0 mg/dL Aspartate Amino Transferase (AST) 69 H 13-40 U/L Alanine Aminotransferase (ALT) 55 H 7-40 U/L Alkaline Phosphatase 63 46-116 U/L Troponin I High Sensitivity 236 *H </=54 ng/L Total Protein 5.6 L 5.7-8.2 g/dL Albumin 3.7 3.2-4.8 g/dL Urine Opiates Screen Neg NEGATIVE Urine Fentanyl Screen Neg NEGATIVE Urine Barbiturates Screen Neg NEGATIVE Urine Phencyclidine Screen Neg NEGATIVE Urine Amphetamines Screen Neg NEGATIVE Urine Benzodiazepines Screen Neg NEGATIVE Urine Cocaine Screen Neg NEGATIVE Urine Cannabinoids Screen Pos NEGATIVE Influenza Type A Antigen Negative Negative Influenza Type B Antigen Negative Negative SARS-CoV-2 Antigen (Rapid) Negative NEGATIVE Test 7/21/25 00:20 02/11/25 16:47 02/11/25 15:28 02/11/25 14:12 Range/Units Hemoglobin A1c 5.2 <5.7 % A1C Magnesium Level 1.9 1.6-2.6 mg/dL Direct Bilirubin 0.4 H <0.3 mg/dL Ammonia 19 11-32 umol/L Vitamin D 25-Hydroxy 23.8 L 30.0-100 ng/mL Plasma/Serum Blood Alcohol < 3.0 <10 mg/dL Urine Color Light-yellow Yellow Urine Clarity Clear Clear Urine pH 5.0 5.0-9.0 Urine Specific Banco 1.008 1.001-1.035 Urine Protein Negative Negative Urine Ketones Negative Negative Urine Blood Negative Negative /uL Urine Nitrite Negative Negative Urine Bilirubin Negative Negative Urine Urobilinogen Normal Negative mg/dL Urine Leukocyte Esterase Negative Negative /uL Urine RBC 1 0 - 3 /hpf Urine Microscopic WBC 1 0-3 /HPF Urine Squamous Epithelial Cells None seen <5 /hpf Urine Bacteria None seen None Seen /hpf Urine Glucose 1+ H Normal mg/dL POC Glucose 121 H 70-106 mg/dl Eosinophils (%) (Auto) 0.2 0.0-7.0 % Eosinophils # (Auto) 0 0-0.8 10 ^3/uL Basophils # (Auto) 0.1 0-0.2 10 ^3/uL Nucleated Red Blood Cells 0.1 % Thyroid Stimulating Hormone (TSH) 4.27 0.55-4.78 uIU/mL Assessment Episodic event with confusion, amnesia Partial complex seizure Alcohol toxicity Alcoholism Plan/Recommendation Monitoring Supportive treatment Telemetry EEG MR brain scan Thiamine supplementation Folic acid supplementation DVT prophylaxis GI prophylaxis Quit alcohol completely No driving on his cleared DMV report in the chart His daughter suggests agree the patient to live with a family member More recommendation per clinical course This medical document was created using an electronic medical record system with [employer] dictation system. Although this document has been carefully reviewed, there may still be some phonetic and typographical errors. These areas are purely typographical due to imperfections of the software programs, and do not reflect any compromise in the patient's medical care. Plan discussed with: Patient, Daughter, Other MARSHALL ARANGO MD Feb 12, 2025 09:15
[2025-02-12] MEDS ORDERED: FOLIC ACID 1 MG in D5W 5% 50 ML INJ SCH (10:00)
--- NOTE | 2025-02-12 10:20 | DVHPNRES ---
Progress Note Date Seen: Feb 12, 2025 Resident Creating Document: PEGGY SIMMS RESIDENT Medical Necessity Reason Pt with a Central, PICC or Fol: No Subjective Review of Systems Patient is 64 years old male with no significant past medical history came with the complaint of confusion. Patient was accompanied by his daughter. As per patient and daughter patient has been confused for last 3-4 days. Four days before patient woke up and felt confused, saw blood in his right foot and some cut injury on the right foot and black eye on the left. Patient then went to the restroom where he saw blood in the restroom but could not recall how this all happened. Patient not sure if he had any blackout or syncopal episode or not. Patient denied chest pain or shortness of breaths, dysuria, diarrhea, any joint pain or swelling. Patient was admitted at [facility] in February 2024 with dizziness and confusion, during that hospital stay CT head /MRI brain/carotid Doppler was negative. EEG was within normal limit, echo 2D LVEF was 60%. On this current admission Initial lab workup revealed leukocytosis with WBC 13.3, elevated troponin I 455, urinalysis glucose 1+. EKG sinus rhythm with short ND interval. Chest x-ray no acute cardiopulmonary abnormality, CT head no acute intracranial abnormality, CT maxillofacial no acute fracture. Carotid Doppler revealed-Atherosclerotic vascular disease with no hemodynamically significant stenosis. Any narrowing is less than 50%. Past Medical History No significant past medical history Past Surgical History Back surgery Family history His brother of fat embolism following femur surgery. Past Social History Patient drank for many years, actively drinks till now. Last drinking episode was 24 shots. Reports smoking for few years during high school, less than 1 pack per week. He denies drug use. 02/12 interval events: Patient seen and examined at the bedside. Patient is alert and oriented and able to answer all questions, not confused at this time. Patient reported he has been more anxious, rest of ROS is negative Objective vital signs Vital Sign Date Time Temp Pulse Resp B/P (MAP) Pulse Ox O2 Delivery O2 Flow Rate FiO2 02/12/25 09:20 66 02/12/25 08:00 98.6 12 143/63 (89) 95 98.6 02/12/25 08:00 Room Air* 0 21 medications Current Medications Medications Dose Ordered Sig/Joslyn Route Start Time Stop Time Status Last Admin Dose Admin Sodium Chloride 10 ml Q8HR IV 02/12/25 06:00 02/12/25 06:44 10 ML Acetaminophen 650 mg Q6HP PRN PO 02/11/25 22:30 Folic Acid 1 mg DAILY PO 02/12/25 10:00 Folic Acid 1 mg/ Magnesium Sulfate 8 meq/ Multivitamins 10 ml/Thiamine HCl 100 mg/Sodium Chloride 1,013.2 ml @ 126.247 mls/hr DAILY@1800 INJ 02/12/25 18:00 Pantoprazole Sodium 40 mg DAILY@0600 PO 02/13/25 06:00 Enoxaparin Sodium 40 mg DAILY SC 02/13/25 10:00 Aspirin 81 mg DAILY PO 02/13/25 10:00 Atorvastatin Calcium 40 mg HS PO 02/12/25 22:00 Thiamine HCl 100 mg DAILY PO 02/13/25 10:00 Ergocalciferol 50,000 unit Q7D PO 02/12/25 08:45 Examination Pt is lying on bed General Appearance: Alert, Oriented X3, Cooperative, Mild distress HEENT: Atraumatic, Mucous membranes moist/pink Respiratory: Clear to auscultation, Normal air movement, No added sounds Cardiovascular: Regular rate, Normal S1, Normal S2, No murmurs Abdominal/ : Active bowel sounds, Soft, no distention, no tenderness Extremities: No edema, Normal pulses, No tenderness/swelling Skin: No Significant rash, except past surgical scars Neuro: Normal speech, sensorimotor deficits none Psych/Mental Status: Mental status NL, Mood NL Nurse was there as bisque grader during examination laboratory and microbiology Laboratory Tests 02/12/25 06:53 02/12/25 04:40 Test 02/12/25 04:40 Range/Units Serum Glucose 108 H 74-106 mg/dL Labs and/or images reviewed: Labs reviewed by me, Image(s) reviewed by me (RN) Problem List/Assessment/Plan Problem List/Assessment/Plan # Acute metabolic/toxic encephalopathy likely alcohol induced # ? Korsakoff encephalopathy-patient with history of alcoholism # Syncope unlikely # Transient Dementia/Amnesia likely from alcohol intoxication # ? Mechanical fall from intoxication # ?seizure # Alcohol toxicity # Alcoholism # Alcohol withdrawl -CIWA score 8 to 9 -monitor for symptoms of withdrawal -banana bag with the thiamine and folic acid -CT head negative for acute intracranial abnormality -carotid Doppler -no significant stenosis -CT maxillofacial- no acute fracture -EKG short ND interval with sinus rhythm -troponin I-455> 293>236 -Echo showed LVEF 65% -continue current conservative management -neurologist advised supportive management - MRI of the brain,Mild changes of chronic microvascular ischemic disease. -counseled regarding alcohol cessation for more than 17 minutes # NSTEMI likely type 2 likely demand lead ischemia -troponin I-455> 293 -continue current conservative management # Leukocytosis likely reactive -chest x-ray no acute cardiopulmonary abnormality -urinalysis negative for UTI -monitor lab for now # Mild transaminitis -serum bilirubin total 1.1, AST 69, ALT 55, alkaline phosphatase 63 -ammonia 19 -pending ultrasound of the liver, no acute changes # substance abuse, cannabinoids -UDS positive for cannabinoids -patient was counseled about the effect of substance abuse on health PUD prophylaxis: Pantoprazole DVT prophylaxis: Lovenox Diet-regular diet Goals of care addressed with the patient for more than 27 minutes: Full code status Case discussed with ,patient and nurse Plan discussed with: Patient, Other My Orders My Orders Orders - PEGGY SIMMS RESIDENT Procedure Category Date Status Time Ergocalciferol PHA 02/12/25 In Process (Vitamin D 50,000 08:45 PTPTT LAB 02/12/25 In Process 08:44 Date of Service: Feb 12, 2025 Billing Provider: DERRICK GARCIA MD Common Visit Codes: [id number] INP/OBS CARE(HIGH) PEGGY SIMMS Feb 12, 2025 10:20 REAGAN LAGUNAS RESIDENT Feb 12, 2025 15:56 DERRICK GARCIA MD Feb 12, 2025 22:43
[2025-02-12] MEDS ORDERED: LORazepam 2MG/ML-1ML VIAL IV PRN (10:30)
[2025-02-12 10:37] LABS: INR 1.03 (0.9-1.15); Partial Thromboplastin Time 27.2 SEC (24.5-34.5); Prothrombin Time 10.9 sec (9.3-11.8)
[2025-02-12] MEDS: ERGOCALCIFEROL 50,000 UNIT(1.25MG) CAP PO SCH (11:04)
[2025-02-12] MEDS: FOLIC ACID 1 MG TAB PO SCH (11:04)
[2025-02-12] MEDS: FOLIC ACID 1 MG in D5W 5% 50 ML INJ ONE (11:05)
--- NOTE | 2025-02-12 11:20 | DVH ---
PROCEDURE: MRI BRAIN HEAD WO CONTRAST INDICATION: ALOC EXAM DATE: 02/12/2025 10:40 AM COMPARISON: MRI BRAIN HEAD WO CONTRAST on DOS: 03/12/24 TECHNIQUE: MRI of the brain without intravenous contrast. FINDINGS: Diffusion weighted images of the brain demonstrate no evidence of acute infarction. There is no evidence of acute intracranial hemorrhage, extra-axial collection, mass effect, midline s hift, herniation or hydrocephalus. The ventricles, sulci and cisterns appear age appropriate. Mild changes of chronic microvascular ischemic disease. The major vascular flow voids are present. The visualized paranasal sinuses and mastoid air cells are clear. The surrounding soft tissues and o sseous structures are unremarkable. IMPRESSION: 1. No evidence of acute infarction, intracranial hemorrhage, mass effect or hydrocephalus. Mild buenrostro es of chronic microvascular ischemic disease. HS:Y
--- NOTE | 2025-02-12 13:20 | DVHSR ---
APPROVED REPORT EXAM: Two-dimensional and M-mode echocardiogram with Doppler and color Doppler. Blood Pressure: 149/70 mmHg INDICATION NSTEMI RISK FACTORS Height: 5'8", Weight: 174 DIMENSIONS LVDd4.9 (3.8-5.7cm)LA (2D)3.7 (1.9-4.0cm)Aortic Root3.1 (2.0-3.7cm) LVDs3.2 (2.5-4.0cm)LA (MM) (1.9-4.0cm)Aortic Cusp Exc2.0 (1.5-2.0cm) EF (%) 64.0 (55-70%)Rt. Atrium3.6 (1.9-4.0cm)Asc. Aorta3.7 cm IVSd0.7 (0.7-1.1cm)RV (D)3.7 (1.8-2.4cm) PWd0.6 (0.7-1.1cm) Mitral Valve MitralMitral Stenosis E wave0.59m/sMV Mean GR.mmHg A wave0.93m/sMV Peak GR.mmHg E/A ratio0.62D MVAcm2 DECEL [id number] 1/2 Timems Aortic Valve Aortic ValveAortic Stenosis V11.46m/Sánchez Mean GR.7mmHg V21.76m/Sánchez Peak GR.12mmHg LVOT Diameter2.1 (1.8-2.4cm)Doppler AVA2.87cm2 Pulmonic Valve V21.27m/s Conclusion lvef 65% normal rv and lv function normal atria no severe valve abnormaliites noted
[2025-02-12] MEDS ORDERED: FOLIC ACID 1 MG, MAGNESIUM SULF SDV 50% 8 MEQ, MULTIPLE VITAMIN 10 ML, THIAMINE INJ 100... INJ SCH (18:00)
[2025-02-12 21:00] VITALS: PULSE 60; RESP 14; O2SAT 96
[2025-02-12] MEDS: ATORVASTATIN 20 MG TAB PO SCH (22:18)
[2025-02-13 04:04] LABS: Hematocrit 39.0 % (41.0-53.0); Hemoglobin 13.8 g/dL (13.5-17.5); Mean Corpuscular Hemoglobin 34.6 pg (28.0-32.0); Mean Corpuscular Volume 97.9 fL (80.0-100.0); Nucleated Red Blood Cells % 0.1 %
[2025-02-13 04:25] LABS: Anion Gap 8 (5-15); Carbon Dioxide 29 mmol/L (20-31); Chloride 105 mmol/L (98-107); Potassium 3.8 mmol/L (3.5-5.1); Sodium 142 mmol/L (136-145)
[2025-02-13 04:26] LABS: Calcium 9.7 mg/dL (8.7-10.4)
[2025-02-13 04:31] LABS: BUN/Creatinine Ratio 10.3 (10.0-20.0); Blood Urea Nitrogen 9 mg/dL (9-23); Glucose 105 mg/dL (74-106)
[2025-02-13] MEDS: PANTOPRAZOLE 40 MG TAB PO SCH (06:28)
--- NOTE | 2025-02-13 09:12 | DVHPN2 ---
Progress Note - Dictate Date Seen: Feb 13, 2025 Medical Necessity Reason Pt with a Central, PICC or Fol: No Subjective Mr. Bautista is a 64 years old right-handed gentleman without major medical problem, he came to the hospital on 02/11/2025 with a chief complaint of confusion for two days, at this time, he is alert and orientedx3, he is able to maintain a good conversation. I saw him on 03/10/2024 for dizziness, confusion I have seen and examined the patient, talked to his nurse and daughter, he is doing fine, no new complaints Today he and his daughter reported he also had tongue biting on 02/09/2024 Urinalysis, 02/12/2025: Unremarkable UDS, 02/12/2025: Cannabinoids Plasma alcohol, 03/10/2024: Normal, 02/12/2025: <3 WBC/HB/PLT/MCV, 02/11/2025: 13.3/15.2/249/98.1 BMP, 02/12/2025: Unremarkable TBI/AST/ALT/AP, 03/10/2024: 1.6/31/23/90 02/12/2025: 1.1/69/55/63 NH3, 02/13/2020 5:19 a.m. Vitamin B12, 03/10/2024: 308 TSH, 03/10/2024: 3.48 EEG, 03/12/24: Normal Ultrasound, 02/12/2025: No sonographic evidence of gallstones or acute cholecystitis. Carotid Doppler, 02/11/2025: Atherosclerotic vascular disease with no hemodynamically significant stenosis. Any narrowing is less than 50%. CT head, 02/29/2024: No acute intracranial abnormality CT head, 02/11/2025: No acute intracranial abnormality. MRI head, 03/12/2024: 1. No evidence of acute infarction, intracranial hemorrhage, mass lesion or hydrocephalus. 2. No seizure focus identified. 3. If there is further localizing history, we would be happy to review these image MRI head, 02/12/2025: No evidence of acute infarction, intracranial hemorrhage, mass effect or hydrocephalus. Mild changes of chronic microvascular ischemic disease. vital signs Vital Sign Date Time Temp Pulse Resp B/P (MAP) Pulse Ox O2 Delivery O2 Flow Rate FiO2 02/13/25 08:40 Nasal Cannula* 2 28 02/13/25 08:00 62 02/13/25 08:00 98.3 16 120/70 (87) 97 98.3 Total Intake and Output 02/12/25 02/12/25 02/13/25 15:00 23:00 07:00 Intake Total 50.2 ml Balance 50.2 ml medications Current Medications Medications Dose Ordered Sig/Joslyn Route Start Time Stop Time Status Last Admin Dose Admin Sodium Chloride 10 ml Q8HR IV 02/12/25 06:00 02/13/25 06:28 10 ML Acetaminophen 650 mg Q6HP PRN PO 02/11/25 22:30 Folic Acid 1 mg DAILY PO 02/12/25 10:00 02/12/25 11:04 1 MG Pantoprazole Sodium 40 mg DAILY@0600 PO 02/13/25 06:00 02/13/25 06:28 40 MG Enoxaparin Sodium 40 mg DAILY SC 02/13/25 10:00 Aspirin 81 mg DAILY PO 02/13/25 10:00 Atorvastatin Calcium 40 mg HS PO 02/12/25 22:00 02/12/25 22:18 40 MG Thiamine HCl 100 mg DAILY PO 02/13/25 10:00 Ergocalciferol 50,000 unit Q7D PO 02/12/25 08:45 02/12/25 11:04 50,000 UNIT Lorazepam 1 mg ONCE PRN IV 02/12/25 10:30 Chlordiazepoxide HCl 10 mg Q6HPRN PRN PO 02/12/25 13:45 objective General: the patient is well developed and nourished. No acute distress. Resolving superficial laceration in the right foot MENTAL STATUS: Awake and alert. Oriented to person, place, time and general circumstances. Able to give personal history. SPEECH, LANGUAGE, HIGHER CORTICAL FUNCTION: no aphasia or dysathria. CRANIAL NERVES: Pupils are equal, round and reactive. EOMs full and conjugate. Mild bilateral gaze evoked nystagmus. Facial sensation intact in all three divisions bilaterally. Mandibular strength intact. Facial muscles symmetrical and strength intact. SENSATION: Sensation to touch and pinprick is normal. MOTOR: Normal tone in the upper and lower extremity. Normal muscle bulk. No fasciculations. No abnormal movements or posturing. Muscle strength of the major groups in the extremities is 5/5. REFLEXES: Deep tendon reflexes normal and symmetrical. No pathological reflexes. CEREBELLAR/COORDINATION: Finger to nose and heel to cannon are normal bilaterally. GAIT/STATION: deferred. laboratory and microbiology Laboratory Tests 02/13/25 03:26 Test 02/13/25 03:26 Range/Units Serum Glucose 105 74-106 mg/dL Problem List Episodic event with confusion, amnesia Partial complex seizure Alcohol toxicity Possible grand mal seizure on 02/09/2024 ? Alcohol withdrawal seizure ? Epileptic seizure Alcoholism Assessment/Plan Monitoring Supportive treatment Telemetry EEG Thiamine supplementation Folic acid supplementation DVT prophylaxis GI prophylaxis Quit alcohol completely No driving on his cleared DMV report in the chart His daughter suggested and I agreed the patient to live with a family member More recommendation per clinical course This medical document was created using an electronic medical record system with [employer] dictation system. Although this document has been carefully reviewed, there may still be some phonetic and typographical errors. These areas are purely typographical due to imperfections of the software programs, and do not reflect any compromise in the patient's medical care. Prognosis poor Plan discussed with: Patient, Daughter, Other Total Time (mins): 40 MARSHALL ARANGO MD Feb 13, 2025 09:12
[2025-02-13] MEDS: ENOXAPARIN SOD 40 MG/0.4 ML SYRINGE SC SCH (10:01)
[2025-02-13] MEDS: THIAMINE HCL 100 MG TAB PO SCH (10:02)
[2025-02-13 12:00] VITALS: BP 117/72; PULSE 62; RESP 13; O2SAT 94
[2025-02-13 13:10] VITALS: TEMP 36.8
--- NOTE | 2025-02-13 18:31 | DVHDSRES ---
Discharge Summary Date of Admission Resident Creating Document: PEGGY SIMMS Feb 11, 2025 at 22:27 Date of Discharge: Feb 13, 2025 Admitting Diagnosis Altered mental status alcohol-induced Labs/Diagnostic Data: Laboratory Results Test 02/13/25 03:26 02/12/25 09:55 02/12/25 04:40 02/12/25 02:40 White Blood Count 10.3 10^3/uL (4.4-10.8) Red Blood Count 3.98 10^6/uL (4.5-5.90) Hemoglobin 13.8 g/dL (13.5-17.5) Hematocrit 39.0 % (41.0-53.0) Mean Corpuscular Volume 97.9 fL (80.0-100.0) Mean Corpuscular Hemoglobin 34.6 pg (28.0-32.0) Mean Corpuscular Hemoglobin Concent 35.3 g/dL (32.0-36.0) Red Cell Distribution Width 13.3 % (11.8-14.3) Platelet Count 226 10^3/uL (140-450) Mean Platelet Volume 7.7 fL (6.9-10.8) Neutrophils (%) (Auto) 65.5 % (37.0-80.0) Lymphocytes (%) (Auto) 26.8 % (10.0-50.0) Monocytes (%) (Auto) 6.0 % (0.0-12.0) Eosinophils (%) (Auto) 1.2 % (0.0-7.0) Basophils (%) (Auto) 0.5 % (0.0-2.0) Neutrophils # (Auto) 6.7 10 ^3/uL (1.6-8.6) Lymphocytes # (Auto) 2.8 10 ^3/uL (0.4-5.4) Monocytes # (Auto) 0.6 10 ^3/uL (0-1.3) Eosinophils # (Auto) 0.1 10 ^3/uL (0-0.8) Basophils # (Auto) 0.1 10 ^3/uL (0-0.2) Nucleated Red Blood Cells 0.1 % Sodium Level 142 mmol/L (136-145) Potassium Level 3.8 mmol/L (3.5-5.1) Chloride Level 105 mmol/L (98-107) Carbon Dioxide Level 29 mmol/L (20-31) Anion Gap 8 (5-15) Blood Urea Nitrogen 9 mg/dL (9-23) Creatinine 0.87 mg/dL (0.700-1.30) Glomerular Filtration Rate Calc 95 mL/min (>90) BUN/Creatinine Ratio 10.3 (10.0-20.0) Serum Glucose 105 mg/dL (74-106) Calcium Level 9.7 mg/dL (8.7-10.4) Prothrombin Time 10.9 sec (9.3-11.8) Prothrombin Time INR 1.03 (0.9-1.15) Activated Partial Thromboplast Time 27.2 SEC (24.5-34.5) Total Bilirubin 1.1 mg/dL (0.2-1.0) Aspartate Amino Transferase (AST) 69 U/L (13-40) Alanine Aminotransferase (ALT) 55 U/L (7-40) Alkaline Phosphatase 63 U/L (46-116) Troponin I High Sensitivity 236 ng/L (</=54) Total Protein 5.6 g/dL (5.7-8.2) Albumin 3.7 g/dL (3.2-4.8) Urine Opiates Screen Neg (NEGATIVE) Urine Fentanyl Screen Neg (NEGATIVE) Urine Barbiturates Screen Neg (NEGATIVE) Urine Phencyclidine Screen Neg (NEGATIVE) Urine Amphetamines Screen Neg (NEGATIVE) Urine Benzodiazepines Screen Neg (NEGATIVE) Urine Cocaine Screen Neg (NEGATIVE) Urine Cannabinoids Screen Pos (NEGATIVE) Influenza Type A Antigen Negative (Negative) Influenza Type B Antigen Negative (Negative) SARS-CoV-2 Antigen (Rapid) Negative (NEGATIVE) Test 02/12/25 00:20 02/11/25 16:47 02/11/25 15:28 02/11/25 14:12 Hemoglobin A1c 5.2 % A1C (<5.7) Magnesium Level 1.9 mg/dL (1.6-2.6) Direct Bilirubin 0.4 mg/dL (<0.3) Ammonia 19 umol/L (11-32) Vitamin B12 Level 240 pg/mL (211-911) Vitamin D 25-Hydroxy 23.8 ng/mL (30.0-100) Folic Acid 15.53 ng/mL (>5.38) Plasma/Serum Blood Alcohol < 3.0 mg/dL (<10) Urine Color Light-yellow (Yellow) Urine Clarity Clear (Clear) Urine pH 5.0 (5.0-9.0) Urine Specific [place] 1.008 (1.001-1.035) Urine Protein Negative (Negative) Urine Ketones Negative (Negative) Urine Blood Negative /uL (Negative) Urine Nitrite Negative (Negative) Urine Bilirubin Negative (Negative) Urine Urobilinogen Normal mg/dL (Negative) Urine Leukocyte Esterase Negative /uL (Negative) Urine RBC 1 /hpf (0 - 3) Urine Microscopic WBC 1 /HPF (0-3) Urine Squamous Epithelial Cells None seen /hpf (<5) Urine Bacteria None seen /hpf (None Seen) Urine Glucose 1+ mg/dL (Normal) POC Glucose 121 mg/dl (70-106) Thyroid Stimulating Hormone (TSH) 4.27 uIU/mL (0.55-4.78) Other Laboratory Tests 02/13/25 03:26 Brief Hx & Hospital Course: Patient is 64 years old male with no significant past medical history came with the complaint of confusion. Patient was accompanied by his daughter. As per patient and daughter patient has been confused for last 3-4 days. Four days before patient woke up and felt confused, saw blood in his right foot and some cut injury on the right foot and black eye on the left. Patient then went to the restroom where he saw blood in the restroom but could not recall how this all happened. Patient not sure if he had any blackout or syncopal episode or not. Patient denied chest pain or shortness of breaths, dysuria, diarrhea, any joint pain or swelling. Past Medical History No significant past medical history Past Surgical History Back surgery Family history His brother of fat embolism following femur surgery. Past Social History Patient drank for many years, actively drinks till now. Last drinking episode was 24 shots. Reports smoking for few years during high school, less than 1 pack per week. He denies drug use. Patient was treated for acute metabolic toxic encephalopathy alcohol-induced, her sickle-cell encephalopathy. His initial CIWA score was 9. He was monitored for symptoms of withdrawal. Banana bag with thiamine folic acid was given. Patient was treated with benzodiazepines CT head negative for acute intracranial abnormality. Carotid Doppler revealed no significant stenosis. Maxillofacial CT was done to rule out fracture use, it revealed no acute fracture EKG reveals no ischemic changes troponin I was initially feeling intubated and eventually downtrended. Echo showed LV ejection fraction 65% we continued doing conservative management. Neurology advised supportive management. MRI of the brain revealed mild changes of chronic microvascular ischemic disease. Reactive leukocytosis was detected, given chest x-ray revealed no acute cardiopulmonary abnormality and urinalysis negative for UTI. The was closely monitored. For mild and transaminitis neb was closely monitored. Ultrasound revealed no acute cholecystitis. He was counseled for more than 27 minutes for Substance abuse history for cannabinoids and alcohol use disorder. Discussed patient's acute confusion improved, he was oriented to time place and consult. The discharge plan was discussed with the patient and daughter and they verbalized understanding. The patient was advised to follow up with PCP after 1 week. General examination- not in acute distress HEENT- PEERLA,-left black eye Cardiovascular- S1-S2 audible, rate and rhythm regular, no murmur Respiratory- CTAB, no wheeze or rhonchi Gastrointestinal-nontender, bowel sound+. Nondistended Musculoskeletal-no acute joint swelling or tenderness or redness Lower extremity- no leg edema, injury on the right foot Neurological- cranial nerves intact, no acute dysarthria or dysphagia Psychiatry- denies depression or SI or HI Skin- no acute rash or purpura Operations or Procedures Brain MRI:1. No evidence of acute infarction, intracranial hemorrhage, mass effect or hydrocephalus. Mild changes of chronic microvascular ischemic disease. Liver ultrasound:No sonographic evidence of gallstones or acute cholecystitis. Carotid Doppler ultrasound: Atherosclerotic vascular disease with no hemodynamically significant stenosis. Any narrowing is less than 50% Maxillofacial CT:No acute fracture CT findings of the maxillofacial region Head CT: FINDINGS: There is sulcal and ventricular prominence. The brainshows normal morphology and cortes-white matter differentiation, without intracranial hemorrhage, extra-axial fluid collection, mass effect or acute large vessel infarct. The ventricles are normal in size. The basal cisterns are patent. The skull and visible facial bones are intact. The paranasal sinuses, mastoid air cells and middle ear cavities are well-aerated. The soft tissues of the scalp are unremarkable. IMPRESSION: No acute intracranial abnormality. CXR:No evidence of acute cardiopulmonary disease. 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 Mechanical fall from intoxication [place]ors[place]off encephalopathy NSTEMI likely type 2 due to demand lady ischemia Reactive leukocytosis Mild transaminitis Substance abuse cannabinoids Alcohol use disorder Discharge Disposition: Home Discharge Instruct/Medications Diet: Consistent carbohydrate, Cardiac 2g Na,low cholest Activity: No Restrictions, As Tolerated Follow Up/Referral: Follow-up with PCP in 1 week Medications: As per EMR Scheduled Folic Acid (Folic Acid), 1 MG PO DAILY Multiple Vitamin (Multivitamins), 1 TAB PO DAILY Thiamine HCl (Thiamine Hydrochloride), 100 MG PO DAILY Discharge Statement: "Patient was advised to return to the ER or call 911 if any headaches, dizziness, shortness of breath, chest pain, abdominal pain, bleeding, fevers, or worsening of medical condition. Patient was counseled about treatment plan, medications, possible side effects, patientverbalized understanding. All questions were answered to the best of my ability. 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
== END 2025-02-13 14:00 | disposition home or self-care (01) | DRG 91 ==
LOC: ER 13:12 → OVERFLOW 22:27 → TELE-WESTW 23:44 → OVERFLOW 23:54
PROVIDERS: ADMIT Internal Medicine; ATTEND Internal Medicine
DX: G92.8 Other toxic encephalopathy (principal); I21.A1 Myocardial infarction type 2; F03.94 Unspecified dementia, unspecified severity, with anxiety; F10.239 Alcohol dependence with withdrawal, unspecified; F10.229 Alcohol dependence with intoxication, unspecified; G40.209 Localization-related (focal) (partial) symptomatic epilepsy and epileptic syndromes with complex partial seizures, not intractable, without status epilepticus; D72.829 Elevated white blood cell count, unspecified; S09.8XXA Other specified injuries of head, initial encounter; R74.01 Elevation of levels of liver transaminase levels; Z80.0 Family history of malignant neoplasm of digestive organs; Z79.899 Other long term (current) drug therapy; W18.39XA Other fall on same level, initial encounter; Y93.89 Activity, other specified; Y92.89 Other specified places as the place of occurrence of the external cause; Y99.8 Other external cause status; Y90.0 Blood alcohol level of less than 20 mg/100 ml
CPT/HCPCS: 36415; 70450; 70486; 70551; 71045; 76705; 80048; 80053; 80076; 80307; 80320; 81001; 82140; 82306; 82607; 82746; 82962; 83036; 83735; 84443; 84484; 85025; 85610; 85730; 87081; 87086; 87426; 87804; 93005; 93306; 93886; 96360; 99291; 99292; G0378; J7060